=== PATIENT | male | born 2000 | race Caucasian/White ===

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

== ENCOUNTER 2024-01-11 01:18 | Emergency (ER) | payer BC ==
[2024-01-11] MEDS: Acetaminophen 325 MG Tab PO ONE (02:33)
== END 2024-01-11 03:18 | disposition home or self-care (01) ==
LOC: JD.ED 01:18
DX: Z53.21 Procedure and treatment not carried out due to patient leaving prior to being seen by health care provider (principal)
CPT/HCPCS: 73130; A9270